=== PATIENT | female | born 1960 | race Caucasian/White ===

== ENCOUNTER → 2017-03-13 | Outpatient (CLI) | payer OTHER ==
--- NOTE | 2017-03-13 14:44 | US ---
EXAMINATION TYPE: US thyroid st tissue head/neck DATE OF EXAM: 03/13/2017 COMPARISON: 06/28/2016 and FNA 08/14/2016 CLINICAL HISTORY: 56-year-old female E04.1 Thyroid nodule. Follow up TECHNIQUE: Multiple sonographic images of the thyroid gland are obtained. FINDINGS: GLAND SIZE: Right Lobe: 4.3 x 1.9 x 2.3 cm Overall Parenchyma: heterogenous Left Lobe: 5.5 x 1.7 x 1.7 cm Overall Parenchyma: heterogeneous Isthmus Thickness: 0.4 cm NODULES RIGHT: # of nodules measured on right: 1 1. 2.2 X 1.2 x 1.6 cm hypoechoic mixed nodule at the mid pole with well-defined margins. This nodu le is wider than tall and shows intranodular vascularity. Prior size: 1.8 x 1.1 x 1.5 cm LEFT: # of nodules measured on left: 0 ISTHMUS: # of nodules measured in the isthmus: 0 Bilateral neck scanned, no evidence of lymphadenopathy. IMPRESSION: The previously sampled nodule within the right lobe has slightly increased in size measuring 2.2 x 1. 6 cm versus 1.8 x 1.5 cm, previously.
== END | disposition home or self-care (01) ==
LOC: RADUSWWP 12:59
PROVIDERS: ATTEND Surgery
DX: E04.1 Nontoxic single thyroid nodule (principal)
CPT/HCPCS: 76536

== ENCOUNTER 2018-10-02 06:56 | Day surgery (SDC) | payer OTHER ==
[2018-09-30 12:25] VITALS: BMI 44.4
--- NOTE | 2018-10-02 06:51 | P.GSHP ---
History of Present Illness H&P Date: 10/02/18 CHIEF COMPLAINT: Colon screen HISTORY OF PRESENT ILLNESS: The patient is a 57-year-old female who presents for colon screen. Lower endoscopy was offered for further evaluation and management. PAST MEDICAL HISTORY: Please see list. PAST SURGICAL HISTORY: Please see list. MEDICATIONS: Please see list. ALLERGIES: Please see list. SOCIAL HISTORY: No illicit drug use FAMILY HISTORY: No reports of Crohn disease or ulcerative colitis. REVIEW OF ORGAN SYSTEMS: CONSTITUTIONAL: No reports of fevers or chills. PHYSICAL EXAM: VITAL SIGNS: Stable GENERAL: Well-developed pleasant in no acute distress. HEENT: No scleral icterus. Extraocular movements grossly intact. Moist buccal mucosa. NECK: Supple without lymphadenopathy. CHEST: Unlabored respirations. Equal bilateral excursions. CARDIOVASCULAR: Regular rate and rhythm. Distal 2+ pulses. ABDOMEN: Soft, nontender, nondistended. MUSCULOSKELETAL: No clubbing, cyanosis, or edema. ASSESSMENT: 1. Colon screen. PLAN: 1. Recommend proceeding with a lower endoscopy Past Medical History Past Medical History: Diabetes Mellitus, GERD/Reflux, Hypertension, Myocardial Infarction ([place]), Sleep Apnea/CPAP/BIPAP, Thyroid Disorder Additional Past Medical History / Comment(s): RECENT BLOOD IN STOOL AND DIFF SWALLOWING.Change in bowel movement,. POSITIVE THYROID BX. KENNY WITH NO CPAP.URINARY INCONTINENCE. POSITIVE HEART MURMUR "stage 3". Peripheral neuropathy, pt states EKG shows previous [place] Last Myocardial Infarction Date:: unknown History of Any Multi-Drug Resistant Organisms: None Reported Past Surgical History: Section, Cholecystectomy Additional Past Surgical History / Comment(s): THYROID BX. X2. Past Anesthesia/Blood Transfusion Reactions: No Reported Reaction Additional Past Anesthesia/Blood Transfusion Reaction / Comment(s): CLAUSTROPHOBIA. Smoking Status: Current every day smoker - Past Family History Mother Family Medical History: Cancer Additional Family Medical History / Comment(s): SKIN CA. Medications and Allergies Home Medications Medication Instructions Recorded Confirmed Type Gabapentin [Neurontin] 300 mg PO DAILY 08/07/16 09/30/18 History amLODIPine [Norvasc] 10 mg PO QAM 08/07/16 09/30/18 History metFORMIN HCL [Glucophage] 1,000 mg PO BID 08/07/16 09/30/18 History Lisinopril 40 mg PO QAM 08/14/16 09/30/18 History Atorvastatin [Lipitor] 80 mg PO DAILY 09/30/18 09/30/18 History Baclofen [Lioresal] 10 mg PO TID 09/30/18 09/30/18 History Cyanocobalamin (Vitamin B-12) 1,000 mcg PO DAILY 09/30/18 09/30/18 History [Vitamin B-12] Exenatide Microspheres [Bydureon] 2 mg SQ SA 09/30/18 09/30/18 History Gabapentin 1,200 mg PO HS 09/30/18 09/30/18 History Glimepiride [Amaryl] 0.5 mg PO DAILY PRN 09/30/18 09/30/18 History Metoprolol Tartrate 50 mg PO DAILY 09/30/18 09/30/18 History Metoprolol Tartrate [Lopressor] 25 mg PO HS 09/30/18 09/30/18 History metFORMIN HCL [Glucophage] 500 mg PO AC-LUNCH 09/30/18 09/30/18 History Allergies Allergy/AdvReac Type Severity Reaction Status Date / Time No Known Allergies Allergy Verified 09/30/18 12:07
[~2018-10-02 06:56] MED LIST: LACTATED RINGERS 1,000 ML IV SCH; LIDOCAINE 1% 20 ML VIAL (10MG/ML) FOR IV START INTRADERMA PRN
[2018-10-02 08:02] VITALS: TEMP 98.3
[2018-10-02 08:03] LABS: Glucose,Whole Blood 131 mg/dL (75-99)
[2018-10-02] MEDS ORDERED: PROPOFOL 10 MG/ML 20 ML VIAL IV ONE (08:04)
[2018-10-02] MEDS ORDERED: LIDOCAINE 1% INJ 10MG/ML (20 ML MDV) ONE (08:04)
--- NOTE | 2018-10-02 08:30 | P.PCN ---
Date of Procedure: 10/02/18 Description of Procedure: PREOPERATIVE DIAGNOSIS: Personal history of colon polyps High risk colon screening Family history colon cancer POSTOPERATIVE DIAGNOSIS: Personal history of colon polyps High risk colon screening Family history colon cancer Multiple tubular adenomas throughout the colon. External hemorrhoids, grade 2. OPERATION: Colonoscopy to the ileocecal valve and appendiceal orifice. Colonoscopy with hot snare polypectomy Colonoscopy with cold forceps biopsy SURGEON: Rowena Reno MD. ANESTHESIA: MAC. INDICATIONS: The patient is a 57-year-old female who presents for colonoscopy screening. last colonoscopy was over 5 years ago. Benefits and risks were described and informed consent was obtained. DESCRIPTION OF PROCEDURE: The patient had undergone Gatorade, MiraLAX and Dulcolax prep. She had been brought into the operating room and laid in the left lateral decubitus position. After adequate intravenous sedation, the rectum was examined with 2% lidocaine jelly. External hemorrhoids were encountered. The rectal tone was within normal limits. No lesions were palpated in the rectal vault. An Olympus colonoscope was advanced until the ileocecal valve and appendiceal orifice were clearly viewed. The prep was fair with visualization of the mucosal folds. The scope was removed with visualization of each mucosal fold. Scattered diverticulosis was encountered. Colonic polyps were found and cold forcep biopsy or snare polypectomy. No evidence of focal colitis was found. Retroflexion of the scope demonstrated grade 1 internal hemorrhoids without active bleeding or inflammation. The colon was desufflated. The patient had tolerated the procedure well. Withdrawal time was over 6 minutes. FINDINGS: Internal hemorrhoids, grade 1 External hemorrhoids, grade 2. No arteriovenous malformations. Sigmoid diverticulosis Removal of 2 polyps: - Snare polypectomy ascending colon, 4 mm tubulovillous adenoma polyp. - Cold forceps biopsy at proximal transverse colon, 3 mm polyp. No focal colitis. RECOMMENDATIONS: Repeat colonoscopy in 3 years, 2021 Plan - Discharge Summary New Discharge Prescriptions: No Action amLODIPine [Norvasc] 10 mg PO QAM metFORMIN HCL [Glucophage] 1,000 mg PO BID Gabapentin [Neurontin] 300 mg PO DAILY Lisinopril 40 mg PO QAM Baclofen [Lioresal] 10 mg PO TID Glimepiride [Amaryl] 0.5 mg PO DAILY PRN PRN Reason: hyperglycemia Exenatide Microspheres [Bydureon] 2 mg SQ SA Gabapentin 1,200 mg PO HS Cyanocobalamin (Vitamin B-12) [Vitamin B-12] 1,000 mcg PO DAILY Metoprolol Tartrate [Lopressor] 25 mg PO HS Metoprolol Tartrate 50 mg PO DAILY metFORMIN HCL [Glucophage] 500 mg PO AC-LUNCH Atorvastatin [Lipitor] 80 mg PO DAILY Discharge Medication List Gabapentin [Neurontin] 300 mg PO DAILY 08/07/16 [History] amLODIPine [Norvasc] 10 mg PO QAM 08/07/16 [History] metFORMIN HCL [Glucophage] 1,000 mg PO BID 08/07/16 [History] Lisinopril 40 mg PO QAM 08/14/16 [History] Atorvastatin [Lipitor] 80 mg PO DAILY 09/30/18 [History] Baclofen [Lioresal] 10 mg PO TID 09/30/18 [History] Cyanocobalamin (Vitamin B-12) [Vitamin B-12] 1,000 mcg PO DAILY 09/30/18 [ History] Exenatide Microspheres [Bydureon] 2 mg SQ SA 09/30/18 [History] Gabapentin 1,200 mg PO HS 09/30/18 [History] Glimepiride [Amaryl] 0.5 mg PO DAILY PRN 09/30/18 [History] Metoprolol Tartrate 50 mg PO DAILY 09/30/18 [History] Metoprolol Tartrate [Lopressor] 25 mg PO HS 09/30/18 [History] metFORMIN HCL [Glucophage] 500 mg PO AC-LUNCH 09/30/18 [History]
[2018-10-02 08:33] VITALS: RESP 16
[2018-10-02 08:51] VITALS: BP 143/75; PULSE 88
== END 2018-10-02 09:07 | disposition home or self-care (01) ==
LOC: ORWHC2ENDO 06:56
PROVIDERS: ATTEND Surgery Plastic and Reconstructive Surgery
DX: Z12.11 Encounter for screening for malignant neoplasm of colon (principal); K63.5 Polyp of colon; K57.30 Diverticulosis of large intestine without perforation or abscess without bleeding; K64.0 First degree hemorrhoids; K64.4 Residual hemorrhoidal skin tags; Z80.0 Family history of malignant neoplasm of digestive organs; Z86.010 Personal history of colon polyps; I25.119 Atherosclerotic heart disease of native coronary artery with unspecified angina pectoris; I10 Essential (primary) hypertension; E11.42 Type 2 diabetes mellitus with diabetic polyneuropathy; G47.33 Obstructive sleep apnea (adult) (pediatric); J44.9 Chronic obstructive pulmonary disease, unspecified; F17.210 Nicotine dependence, cigarettes, uncomplicated; K21.9 Gastro-esophageal reflux disease without esophagitis; I25.2 Old myocardial infarction; R00.2 Palpitations; E07.9 Disorder of thyroid, unspecified; R32 Unspecified urinary incontinence; F40.240 Claustrophobia; Z99.89 Dependence on other enabling machines and devices; Z79.84 Long term (current) use of oral hypoglycemic drugs; Z79.899 Other long term (current) drug therapy
CPT/HCPCS: 88305; 45380; 45385; J2001; J2704

== ENCOUNTER → 2018-12-20 | Day surgery (SDC) | payer OTHER ==
[2018-12-20 12:41] VITALS: BP 158/72; PULSE 73; RESP 20; TEMP 98.5
--- NOTE | 2018-12-20 13:52 | US ---
ULTRASOUND GUIDED FNA THYROID BIOPSY: CLINICAL HISTORY: Right thyroid nodule FINDINGS: The procedure was explained to the patient. The risks, complications, benefits and alternatives were discussed and any questions were answered. Informed consent was obtained. Patient was placed supin e on the ultrasound table and prepped and draped in the usual sterile fashion. Utilizing a 25 gauge needle, five passes were made into the requested right thyroid nodule. Patient was stable throughout the procedure. Pathology is pending. All elements of maximal barrier technique were utilized. IMPRESSION: 1. Successful ultrasound guided FNA thyroid biopsy.
== END ==
LOC: RADPROMAIN 12:01
PROVIDERS: ATTEND Surgery
DX: E04.1 Nontoxic single thyroid nodule (principal)
CPT/HCPCS: 10005; 88173; 88305

== ENCOUNTER → 2019-07-07 | Outpatient (CLI) | payer OTHER ==
--- NOTE | 2019-07-07 13:12 | US ---
EXAMINATION TYPE: US thyroid st tissue head/neck DATE OF EXAM: 07/07/2019 COMPARISON: 03/13/2017 CLINICAL HISTORY: 58-year-old female E04.1 Thyroid Nodule. TECHNIQUE: Multiple sonographic images of the thyroid gland are obtained. FINDINGS: GLAND SIZE: Right Lobe: 4.4 x 1.9 x 1.6 cm Overall Parenchyma: homogenous Left Lobe: 4.1 x 1.5 x 1.8 cm Overall Parenchyma: homogeneous Isthmus Thickness: 0.4 cm NODULES RIGHT: # of nodules measured on right: 1 1. 2.0 X 1.4 x 1.1 cm hypoechoic solid nodule at the mid pole with well-defined margins . This nod ule is wider than tall and shows intranodular vascularity. Prior size: 2.2 x 1.2 x 1.1 cm LEFT: # of nodules measured on left: 1 1. 0.5 X 0.6 x 0.5 cm hypoechoic solid nodule at the lower pole with well-defined margins; . This nodule is taller than wide and shows no intranodular vascularity. Prior size: Not previously seen. ISTHMUS: # of nodules measured in the isthmus: 0 IMPRESSION: 1.The solid 2.0 x 1.4 cm nodule at the right midpole is relatively unchanged (2.2 x 1.2 cm, previousl y). 2. A small signal near solid nodule at the posterior left lower pole may be new. Short interval follo w-up can be considered.
== END | disposition home or self-care (01) ==
LOC: RADUSWWP 09:06
PROVIDERS: ATTEND Surgery
DX: E04.2 Nontoxic multinodular goiter (principal)
CPT/HCPCS: 76536

== ENCOUNTER → 2020-07-07 | Outpatient (CLI) | payer OTHER ==
--- NOTE | 2020-07-07 15:42 | US ---
EXAMINATION TYPE: US thyroid st tissue head/neck DATE OF EXAM: 07/07/2020 COMPARISON: Thyroid ultrasound 07/07/2019, 03/13/2017 CLINICAL HISTORY: E04.1 Thyroid Nodule. GLAND SIZE: Right Lobe: 4.5 x 2.4 x 1.9 cm Overall Parenchyma: homogenous Left Lobe: 4.8 x 1.6 x 1.8 cm Overall Parenchyma: homogeneous Isthmus Thickness: 0.3 cm NODULES RIGHT: # of nodules measured on right: 1 1. 2.0 X 1.1 x 1.4 cm hypoechoic solid nodule at the mid pole with well-defined margins. This nodu le is wider than tall and shows intranodular vascularity. Prior size: 2.0 x 1.4 x 1.1 cm LEFT: # of nodules measured on left: 1. 0.6 X 0.4 x 0.5 cm hypoechoic solid nodule at the lower pole with well-defined margins. This no dule is taller than wide and shows intranodular vascularity. Prior size: 0.5 x 0.6 x 0.5 cm ISTHMUS: # of nodules measured in the isthmus: 0 Bilateral neck scanned, no evidence of lymphadenopathy. IMPRESSION: 1. Right thyroid 2.0 cm nodule unchanged versus 07/07/2019 and 03/13/2017 ultrasound comparisons. 2. Left thyroid 0.6 cm nodule unchanged versus 07/07/2019.
== END | disposition home or self-care (01) ==
LOC: RADUSWWP 10:40
PROVIDERS: ATTEND Surgery
DX: E04.1 Nontoxic single thyroid nodule (principal)
CPT/HCPCS: 76536

== ENCOUNTER → 2021-07-05 | Outpatient (CLI) | payer OTHER ==
--- NOTE | 2021-07-05 15:46 | US ---
EXAMINATION TYPE: US thyroid st tissue head/neck DATE OF EXAM: 07/05/2021 COMPARISON: 07/07/2020 CLINICAL HISTORY: 60-year-old female E04.1 Thyroid nodule. TECHNIQUE: Multiple sonographic images of the thyroid gland are obtained. FINDINGS: GLAND SIZE: Right Lobe: 4.9x2.3x2.5 cm Overall Parenchyma: homogenous Left Lobe: 4.5x2.1x1.6 cm Overall Parenchyma: homogeneous Isthmus Thickness: 0.6 cm NODULES RIGHT: # of nodules measured on right: 1 1. 2.0 X 1.5 x 1.1 cm, mid lateral, primarily solid TR5 hypoechoic nodule, which is wider than tall , with smooth margins, with echogenic foci. Prior size: 2.0 x 1.4 x 1.1 cm LEFT: # of nodules measured on left: 1 1. 0.7 X 0.6 x 0.5 cm, mid mid, solid or almost completely solid, TR 4 hypoechoic nodule, which is wider than tall, with smooth margins, without echogenic foci. Prior size: 0.7 x 0.5 x 0.5 cm ISTHMUS: # of nodules measured in the isthmus: 0 Bilateral neck scanned, no evidence of lymphadenopathy. IMPRESSION: A solid nodule within each lobe. The dominant 2.0 cm nodule on the right is a TR5 nodule but remains stable. The 7 mm TR4 nodule on the left is also stable.
== END | disposition home or self-care (01) ==
LOC: RADUSWWP 12:21
PROVIDERS: ATTEND Surgery
DX: E04.2 Nontoxic multinodular goiter (principal)
CPT/HCPCS: 76536

== ENCOUNTER → 2022-07-06 | Outpatient (CLI) | payer OTHER ==
--- NOTE | 2022-07-06 12:57 | US ---
EXAMINATION TYPE: US thyroid st tissue head/neck DATE OF EXAM: 07/06/2022 COMPARISON: Prior thyroid JULY 05, 2021 CLINICAL HISTORY: E04.1 Thyroid nodule. follow up thyroid nodules GLAND SIZE: Right Lobe: 5.3 x 2.2 x 2.4 cm Overall Parenchyma: homogenous Left Lobe: 4.7 x 1.6 x 1.9 cm Overall Parenchyma: homogeneous Isthmus Thickness: 0.5 cm NODULES RIGHT: # of nodules measured on right: 1 1. 2.2 X 1.4 x 1.6 cm, mid, solid or almost completely solid, hypoechoic nodule, which is wider bev n tall, with smooth margins, with echogenic foci. Prior size: 2.0 x 1.5 x 1.1 cm LEFT: # of nodules measured on left: 1 1. 0.8 X 0.6 x 0.7 cm, mid, solid or almost completely solid, hypoechoic nodule, which is wider bev n tall, with smooth margins, without echogenic foci. Prior size: 0.7 x 0.6 x 0.5 cm ISTHMUS: # of nodules measured in the isthmus: 0 Bilateral neck scanned, lymph nodes left neck with largest = 1.6cm Homogeneous normal-sized thyroid redemonstrated with stable bilateral single nodules marked by techno logist. IMPRESSION: As above. No significant change from most recent ultrasound.
== END | disposition home or self-care (01) ==
LOC: RADUSWWP 11:12
PROVIDERS: ATTEND Surgery
DX: E04.2 Nontoxic multinodular goiter (principal)
CPT/HCPCS: 76536

== ENCOUNTER 2022-07-31 06:06 | Day surgery (SDC) | payer OTHER ==
[2022-07-25 11:36] VITALS: BMI 45.7
[~2022-07-31 06:06] MED LIST changes: +ACETAMINOPHEN TAB 500 MG TAB PO PRN; +HEPARIN SODIUM,PORCINE/PF 5,000 UNIT/0.5 ML SYRINGE SQ PRN; -LACTATED RINGERS 1,000 ML IV SCH; -LIDOCAINE 1% 20 ML VIAL (10MG/ML) FOR IV START INTRADERMA PRN; +Pre Op ABX Message 1 EACH MISC MISCELLANE ONE
[2022-07-31] MEDS ORDERED: DEXAMETHASONE SOD PHOSPHATE 4 MG/ML 1 ML VIAL IV ONE (06:44)
[2022-07-31] MEDS ORDERED: HYDROmorphone 0.5 MG/0.5 ML SYRINGE IVP PRN ×2 (06:44→09:24)
[2022-07-31] MEDS ORDERED: ONDANSETRON 4 MG/2 ML VIAL IVP ONE (06:44)
[2022-07-31 07:07] LABS: Glucose,Whole Blood 273 mg/dL (70-110)
[2022-07-31] MEDS ORDERED: INSULIN ASPART (NovoLOG) 100 UNIT/ML VIAL SQ ONE (07:13)
[2022-07-31] MEDS ORDERED: LACTATED RINGERS 1,000 ML IV ONE ×3 (07:15→09:24)
[2022-07-31] MEDS ORDERED: fentaNYL (PF) 50 MCG/ML 2 ML AMP ONE (07:35)
[2022-07-31] MEDS ORDERED: SUCCINYLCHOLINE CHLORIDE 200 MG/10 ML VIAL IV ONE (07:35)
[2022-07-31] MEDS ORDERED: PHENYLEPHRINE-0.9% NACL SYG 1,000 MCG/10 ML SYRINGE ONE (07:35)
[2022-07-31] MEDS ORDERED: GLYCOPYRROLATE 0.2 MG/ML 2 ML VIAL ONE (07:35)
[2022-07-31] MEDS ORDERED: WATER FOR INJECTION, STERILE 10 ML VIAL IV ONE (07:35)
[2022-07-31] MEDS ORDERED: ePHEDrine 50 MG/ML 1 ML VIAL ONE (07:35)
[2022-07-31] MEDS ORDERED: PROPOFOL 10 MG/ML 20 ML VIAL IV ONE (07:35)
[2022-07-31] MEDS ORDERED: KETAMINE 10 MG/ML 20 ML VIAL ONE (07:35)
[2022-07-31] MEDS ORDERED: MIDAZOLAM 2 MG/2 ML VIAL ONE (07:35)
[2022-07-31] MEDS ORDERED: LIDOCAINE 2% INJ 20 MG/ML (2 ML VIAL) ONE (07:35)
[2022-07-31] MEDS ORDERED: ceFAZolin 3 GM in SODIUM CHLORIDE 0.9% 100 ML IVPB STA (07:38)
[2022-07-31] MEDS ORDERED: SODIUM CHLORIDE 0.9% 100 ML with ceFAZolin 3,000 MG IV ONE ×2 (07:43)
--- NOTE | 2022-07-31 07:50 | P.GSHP ---
History of Present Illness H&P Date: 07/31/22 Chief Complaint: Right thyroid nodule Is a 61-year-old female who has complaints of right neck pain. Patient has a known right thyroid nodule. The nodules increased in size. He currently is 2.2 cm diameter. His resents today for right thyroidectomy Past Medical History Past Medical History: Diabetes Mellitus, GERD/Reflux, Hypertension, Myocardial Infarction ([place]), Osteoarthritis ([place]), Sleep Apnea/CPAP/BIPAP, Thyroid Disorder Additional Past Medical History / Comment(s): diarrhea, hx pre-cancerous colon polyps., hx of difficulty swallowing , sleep apnea with machine., leaky heart valve with heart murmur stage 3., left hip pain & sciatica- states she cannot stand or sit for long.,. Peripheral neuropathy., thyroid nodules. Last Myocardial Infarction Date:: unknown History of Any Multi-Drug Resistant Organisms: None Reported Past Surgical History: Section, Cholecystectomy Additional Past Surgical History / Comment(s): THYROID BX. X2. Past Anesthesia/Blood Transfusion Reactions: No Reported Reaction Additional Past Anesthesia/Blood Transfusion Reaction / Comment(s): CLAUSTROPHOBIA. Past Psychological History: Anxiety, Bipolar, Depression, PTSD Additional Psychological History / Comment(s): . Smoking Status: Current every day smoker Past Alcohol Use History: Rare Additional Past Alcohol Use History / Comment(s): SMOKES 15 CIGARETTES/DAY., STARTED SMOKING AT AGE 10 Past Drug Use History: Marijuana Additional Drug Use History / Comment(s): OCCASIONAL MARIJUANA AND CBD LOTION. - Past Family History Mother Family Medical History: Cancer Additional Family Medical History / Comment(s): SKIN & LUNG CANCER Father Family Medical History: Myocardial Infarction ([place]) Medications and Allergies Home Medications Medication Instructions Recorded Confirmed Type metFORMIN HCL [Glucophage] 500 mg PO BID 08/07/16 07/25/22 History lisinopriL 40 mg PO QAM 08/14/16 07/25/22 History Atorvastatin [Lipitor] 80 mg PO DAILY 09/30/18 07/25/22 History Baclofen [Lioresal] 10 mg PO TID 09/30/18 07/25/22 History Gabapentin [Neurontin] 800 mg PO TID 12/11/18 07/25/22 History Acetaminophen Tab [Tylenol] 325 mg PO DIRECTED PRN 07/25/22 07/25/22 History Escitalopram [Lexapro] 10 mg PO DAILY 07/25/22 07/25/22 History Glimepiride [Amaryl] 2 mg PO AC-BRKFST 07/25/22 07/25/22 History Liraglutide [Victoza 2-Frandy] 0.6 mg SQ DAILY 07/25/22 07/25/22 History Metoprolol Tartrate [Lopressor] 50 mg PO BID 07/25/22 07/25/22 History Pantoprazole [Protonix] 40 mg PO DAILY 07/25/22 07/25/22 History Allergies Allergy/AdvReac Type Severity Reaction Status Date / Time No Known Allergies Allergy Verified 07/25/22 11:18 Surgical - Exam Vital Signs Temp Pulse Resp BP Pulse Ox 97.6 F 61 20 169/79 94 L 07/31/22 06:57 07/31/22 06:57 07/31/22 06:57 07/31/22 06:57 07/31/22 06:57 - General Patient is obese. BMI is 45 well developed, well nourished, no distress - Eyes PERRL - ENT normal pinna - Neck no masses - Respiratory normal expansion - Cardiovascular Rhythm: regular - Abdomen Abdomen: soft, non tender Results - Labs Abnormal Lab Results - Last 24 Hours (Table) 07/31/22 Range/Units 07:05 POC Glucose (mg/dL) 273 H (70-110) mg/dL Diabetes panel 07/31/22 Range/Units 07:05 Calcium 9.0 (8.4-10.2) mg/dL Calcium panel 07/31/22 Range/Units 07:05 Calcium 9.0 (8.4-10.2) mg/dL Pituitary panel 07/31/22 Range/Units 07:05 Calcium 9.0 (8.4-10.2) mg/dL Adrenal panel 07/31/22 Range/Units 07:05 Calcium 9.0 (8.4-10.2) mg/dL Assessment and Plan Assessment: Right thyroid nodule. She'll undergo right thyroidectomy.
[2022-07-31] MEDS ORDERED: ONDANSETRON 4 MG/2 ML VIAL IVP PRN (09:24)
[2022-07-31] MEDS ORDERED: HYDROcodone/APAP 5-325MG 1 EACH TAB PO PRN (09:24)
[2022-07-31] MEDS ORDERED: NALOXONE 0.4 MG/ML 1 ML VIAL IV PRN (09:24)
[2022-07-31] MEDS ORDERED: ACETAMINOPHEN TAB 325 MG TAB PO PRN (09:24)
--- NOTE | 2022-07-31 09:24 | P.OP ---
Date of Procedure: 07/31/22 Preoperative Diagnosis: Right thyroid nodule Postoperative Diagnosis: Right thyroid nodule Procedure(s) Performed: Right thyroidectomy Anesthesia: BOB Surgeon: Ruben Vidal Estimated Blood Loss (ml): 5 Pathology: other (Right thyroid) Condition: stable Disposition: PACU Description of Procedure: The patient's placed on the operative table in the supine position. She received general endotracheal tube anesthesia. Her neck was prepped and draped usual sterile fashion. A standard Jasper incision was made approximately 2 cm above the sternal notch. Some taste issue divided with cautery. The platysma divided with cautery. The strap muscles were then divided midline. Gelpi retractors placed a wound. The right thyroid gland was then brought up into the wound. The inferior thyroid vessels were dissected and then ligated with 3-0 silk sutures. The superior thyroid vessels were then dissected. And then these were ligated with 2-0 silk ties. The gland was then rotated medially. Using meticulous dissection the middle thyroid vessels were ligated with 3-0 silk t ies. Care was taken to identify and preserve the recurrent laryngeal nerve. The thyroid was then rotated further medially. And then using meticulous dissection the thyroid gland was dissected off the trachea. The isthmus was then divided with the Harmonic scissors. The specimens of pathology. The was retrieved cyst. There is no bleeding seen. The strap muscles then reapproximated using 3-0 Vicryl suture. The platysma was an approximate using 3-0 Vicryl suture. Skin was closed interrupted 3-0 Monocryl suture. Dermabond was applied. Patient top she will was sent to recovery room in stable condition.
[2022-07-31 10:13] LABS: Glucose,Whole Blood 219 mg/dL (70-110)
[2022-07-31] MEDS: LACTATED RINGERS 1,000 ML IV SCH ×2 (11:58→15:53)
[2022-07-31 12:35] LABS: Glucose,Whole Blood 236 mg/dL (70-110)
[2022-07-31] MEDS ORDERED: BENZOCAINE/MENTHOL LOZENG 1 EACH LOZENGE MUCOUS MEM PRN (17:26)
[2022-07-31 17:41] LABS: Glucose,Whole Blood 310 mg/dL (70-110)
[2022-07-31] MEDS: INSULIN ASPART (NovoLOG) 100 UNIT/ML VIAL SQ SCH ×2 (19:04→21:59)
[2022-07-31] MEDS ORDERED: INSULIN ASPART (NovoLOG) 100 UNIT/ML VIAL SQ SCH (21:00)
[2022-07-31 21:47] LABS: Glucose,Whole Blood 288 mg/dL (70-110)
[2022-07-31] MEDS: METOPROLOL TARTRATE 50 MG TAB PO SCH (21:52)
[2022-07-31] MEDS: BACLOFEN 10 MG TAB PO SCH (21:53)
[2022-07-31] MEDS: GABAPENTIN 400 MG CAP PO SCH (21:59)
[2022-08-01 06:13] LABS: Glucose,Whole Blood 190 mg/dL (70-110)
[2022-08-01] MEDS: INSULIN ASPART (NovoLOG) 100 UNIT/ML VIAL SQ SCH ×2 (06:38→12:59)
[2022-08-01] MEDS ORDERED: GLIMEPIRIDE 2 MG TAB PO SCH (07:30)
[2022-08-01] MEDS ORDERED: PANTOPRAZOLE 40 MG TABLET PO SCH (07:30)
[2022-08-01 07:35] VITALS: BP 133/71; PULSE 59; RESP 18; TEMP 97.9
[2022-08-01] MEDS: BACLOFEN 10 MG TAB PO SCH (08:27)
[2022-08-01] MEDS: GABAPENTIN 400 MG CAP PO SCH (08:27)
[2022-08-01] MEDS: METOPROLOL TARTRATE 50 MG TAB PO SCH (08:28)
[2022-08-01] MEDS ORDERED: ESCITALOPRAM 10 MG TAB PO SCH (09:00)
[2022-08-01] MEDS ORDERED: ENOXAPARIN 40 MG/0.4 ML SYRINGE SQ SCH (09:00)
[2022-08-01] MEDS ORDERED: lisinopriL 20 MG TAB PO SCH (09:00)
[2022-08-01] MEDS ORDERED: ATORVASTATIN 80 MG TAB PO SCH (09:00)
--- NOTE | 2022-08-01 12:03 | P.CONS ---
History of Present Illness - Reason for Consult Consult date: 08/01/22 - History of Present Illness This is a 61 year old female with history of diabetes mellitus, GERD, hypertension, sleep apnea with cpap use, heart murmur, peripheral neuropathy, thyroid disorder. History of VT with cardiac cath patient states was clear. Patient is a daily smoker smokes 1/2 pack per day and also occasional marijuana use. Patient presents to the hospital for planned right thyroidectomy secondary to thyroid nodule. States she has had 2 biopsies previously. Unsure if this is cancer or not, pathology is pending. She is postoperative day #1. She has been resumed on home medications and also sliding scale insulin blood sugar is elevated in the 200s. She is maintained on oral diabetic agents. She is afebrile, heart rate 59, blood pressure 133/71, 93% on room air. Reports having some mild discomfort when swallowing but managable and using lozenges. Pain to the neck incision rated 3 out of 10. Controlled with oral medication. Anticipating discharge home today and medically she is cleared for this. REVIEW OF SYSTEMS: CONSTITUTIONAL: No fever, no malaise, no fatigue. HEENT: No recent visual problems or hearing problems. Has some mild sore throat. CARDIOVASCULAR: No chest pain, orthopnea, PND, no palpitations, no syncope. PULMONARY: No shortness of breath, no cough, no hemoptysis. GASTROINTESTINAL: No diarrhea, no nausea, no vomiting, no abdominal pain. NEUROLOGICAL: No headaches, no weakness, no numbness. HEMATOLOGICAL: Denies any bleeding or petechiae. GENITOURINARY: Denies any burning micturition, frequency, or urgency. MUSCULOSKELETAL/RHEUMATOLOGICAL: Denies any joint pain, swelling, or any muscle pain. ENDOCRINE: Denies any polyuria or polydipsia. The rest of the 14-point review of systems is negative. PHYSICAL EXAMINATION: GENERAL: The patient is alert and oriented x3, not in any acute distress. Well developed, well nourished. Obese HEENT: Pupils are round and equally reacting to light. EOMI. No scleral icterus. No conjunctival pallor. Normocephalic, atraumatic. No pharyngeal erythema. No thyromegaly. CARDIOVASCULAR: S1 and S2 present. No murmurs, rubs, or gallops. PULMONARY: Chest is clear to auscultation, no wheezing or crackles. ABDOMEN: Soft, nontender, nondistended, normoactive bowel sounds. No palpable organomegaly. MUSCULOSKELETAL: No joint swelling or deformity. EXTREMITIES: No cyanosis, clubbing, or pedal edema. NEUROLOGICAL: Gross neurological examination did not reveal any focal deficits. SKIN: No rashes. anterior neck transverse incision well approximated no drainage minimal erythema. Assessment and Plan Assessment History of right thyroid nodule postoperative day 1 right thyroidectomy History of heart murmur Sleep apnea with CPAP use Diabetes Mellitus type 2 with peripheral neuropathy Hypertension Gastroesophageal reflux disease History of coronary artery disease managed medically. Chronic daily nicotine use patient was counseled extensively states she will cut back stop while healing from surgery. Obesity Gi prophylaxis DVT prophylaxis Full Code Plan Continue home medications Continue oral amaryl consider additional management of blood sugar on discharge patient is hyperglycemic with blood glucose in the 200s Continue cepacol lozenge and supportive care Pain management Incentive spirometry Medically patient can be discharged if cleared by primary The impression and plan of care has been dictated by Manda Gomes Nurse Practitioner as directed. Dr. Cathy MD I have performed a history and physical examination and medical decision making of this patient, discussed the same with the dictator, and agree with the dictators assessment and plan as written, documented as a scribe. Based on total visit time, I have performed more than 50% of this visit. Past Medical History Past Medical History: Diabetes Mellitus, GERD/Reflux, Hypertension, Myocardial Infarction (VT), Osteoarthritis (OA), Sleep Apnea/CPAP/BIPAP, Thyroid Disorder Additional Past Medical History / Comment(s): diarrhea, hx pre-cancerous colon polyps., hx of difficulty swallowing , sleep apnea with machine., leaky heart valve with heart murmur stage 3., left hip pain & sciatica- states she cannot stand or sit for long.,. Peripheral neuropathy., thyroid nodules. Last Myocardial Infarction Date:: unknown History of Any Multi-Drug Resistant Organisms: None Reported Past Surgical History: Section, Cholecystectomy Additional Past Surgical History / Comment(s): THYROID BX. X2. Past Anesthesia/Blood Transfusion Reactions: No Reported Reaction Additional Past Anesthesia/Blood Transfusion Reaction / Comm: CLAUSTROPHOBIA. Past Psychological History: Anxiety, Bipolar, Depression, PTSD Additional Psychological History / Comment(s): . Smoking Status: Current every day smoker Past Alcohol Use History: Rare Additional Past Alcohol Use History / Comment(s): SMOKES 15 CIGARETTES/DAY., STARTED SMOKING AT AGE 10 Past Drug Use History: Marijuana Additional Drug Use History / Comment(s): OCCASIONAL MARIJUANA AND CBD LOTION. - Past Family History Mother Family Medical History: Cancer Additional Family Medical History / Comment(s): SKIN & LUNG CANCER Father Family Medical History: Myocardial Infarction (VT) Medications and Allergies Home Medications Medication Instructions Recorded Confirmed Type metFORMIN HCL [Glucophage] 500 mg PO BID 08/07/16 07/25/22 History lisinopriL 40 mg PO QAM 08/14/16 07/25/22 History Atorvastatin [Lipitor] 80 mg PO DAILY 09/30/18 07/25/22 History Baclofen [Lioresal] 10 mg PO TID 09/30/18 07/25/22 History Gabapentin [Neurontin] 800 mg PO TID 12/11/18 07/25/22 History Acetaminophen Tab [Tylenol] 325 mg PO DIRECTED PRN 07/25/22 07/25/22 History Escitalopram [Lexapro] 10 mg PO DAILY 07/25/22 07/25/22 History Glimepiride [Amaryl] 2 mg PO AC-BRKFST 07/25/22 07/25/22 History Liraglutide [Victoza 2-Frandy] 0.6 mg SQ DAILY 07/25/22 07/25/22 History Metoprolol Tartrate [Lopressor] 50 mg PO BID 07/25/22 07/25/22 History Pantoprazole [Protonix] 40 mg PO DAILY 07/25/22 07/25/22 History Allergies Allergy/AdvReac Type Severity Reaction Status Date / Time No Known Allergies Allergy Verified 07/25/22 11:18 Physical Exam Vitals: Vital Signs Temp Pulse Pulse Resp BP BP Pulse Ox 08/01/22 07:00 97.9 F 59 L 18 133/71 93 L 08/01/22 02:00 97.3 F L 66 17 135/62 94 L 07/31/22 21:47 98.0 F 67 19 134/63 91 L 07/31/22 15:00 98.1 F 71 17 149/73 89 L 07/31/22 13:12 87 17 157/78 92 L 07/31/22 12:57 87 17 153/78 92 L 07/31/22 12:42 97 18 135/73 97 07/31/22 12:27 88 17 154/80 95 07/31/22 12:12 97.4 F L 92 17 143/78 93 L 07/31/22 10:48 95 18 142/78 96 07/31/22 10:31 96 18 138/67 96 07/31/22 10:22 171/87 07/31/22 10:15 95 18 197/90 96 07/31/22 10:00 98 18 194/86 96 07/31/22 09:46 93 18 191/79 96 Intake and Output 07/31/22 08/01/22 08/01/22 22:59 06:59 14:59 Intake Total 300 Balance 300 Intake: Oral 300 Other: # Voids 2 1 Results Labs: Abnormal Lab Results - Last 24 Hours (Table) 07/31/22 07/31/22 07/31/22 Range/Units 10:11 12:32 17:39 POC Glucose (mg/dL) 219 H 236 H 310 H (70-110) mg/dL 07/31/22 08/01/22 Range/Units 21:45 06:12 POC Glucose (mg/dL) 288 H 190 H (70-110) mg/dL Assessment and Plan Time with Patient: Less than 30
[2022-08-01 12:20] LABS: Glucose,Whole Blood 157 mg/dL (70-110)
--- NOTE | 2022-08-01 13:55 | P.DS ---
Providers Expected date of discharge: 08/01/22 Attending physician: Ruben Vidal Consults: 07/31/22 09:24 Consult Physician Routine Consulting Provider: Sd Morgan Consult Reason/Comments: Medical management Do you want consulting provider notified?: Yes Primary care physician: Stated None Hospital Course: Discharge diagnosis 1. Right thyroid nodule status post right thyroidectomy Hospital course This is a 61-year-old female with right sided neck pain. She has a known right thyroid nodule that has increased in size. She is status post right thyroidectomy. She's tolerated surgery well. Her pain is controlled. She denies any hoarseness. She denies any difficulty with swallowing. She's tolerating diet. She's afebrile. Incision site is clean dry and intact. She is stable for discharge. Please refer to chart for any further details. Physician Desktop Support Consultant note has been reviewed by physician. Signing provider agrees with the documented findings, assessment, and plan of care. Patient Condition at Discharge: Stable Plan - Discharge Summary Discharge Rx Participant: No New Discharge Prescriptions: New Benzocaine/Menthol Lozeng [Cepacol lozenge] 1 each MUCOUS MEM Q2HR PRN #20 lozenge PRN Reason: Sore Throat HYDROcodone/APAP 5-325MG [[place] 5-325] 1 tab PO Q6HR PRN 3 Days #12 tab PRN Reason: Pain Continue metFORMIN HCL [Glucophage] 500 mg PO BID lisinopriL 40 mg PO QAM Baclofen [Lioresal] 10 mg PO TID Atorvastatin [Lipitor] 80 mg PO DAILY Gabapentin [Neurontin] 800 mg PO TID Glimepiride [Amaryl] 2 mg PO AC-BRKFST Liraglutide [Victoza 2-Frandy] 0.6 mg SQ DAILY Pantoprazole [Protonix] 40 mg PO DAILY Metoprolol Tartrate [Lopressor] 50 mg PO BID Escitalopram [Lexapro] 10 mg PO DAILY Acetaminophen Tab [Tylenol] 325 mg PO DIRECTED PRN PRN Reason: Pain Discharge Medication List metFORMIN HCL [Glucophage] 500 mg PO BID 08/07/16 [History] lisinopriL 40 mg PO QAM 08/14/16 [History] Atorvastatin [Lipitor] 80 mg PO DAILY 09/30/18 [History] Baclofen [Lioresal] 10 mg PO TID 09/30/18 [History] Gabapentin [Neurontin] 800 mg PO TID 12/11/18 [History] Acetaminophen Tab [Tylenol] 325 mg PO DIRECTED PRN 07/25/22 [History] Escitalopram [Lexapro] 10 mg PO DAILY 07/25/22 [History] Glimepiride [Amaryl] 2 mg PO AC-BRKFST 07/25/22 [History] Liraglutide [Victoza 2-Frandy] 0.6 mg SQ DAILY 07/25/22 [History] Metoprolol Tartrate [Lopressor] 50 mg PO BID 07/25/22 [History] Pantoprazole [Protonix] 40 mg PO DAILY 07/25/22 [History] Benzocaine/Menthol Lozeng [Cepacol lozenge] 1 each MUCOUS MEM Q2HR PRN #20 lozenge 08/01/22 [Rx] HYDROcodone/APAP 5-325MG [Enterprise 5-325] 1 tab PO Q6HR PRN 3 Days #12 tab 08/01/22 [Rx] Follow up Appointment(s)/Referral(s): JOSEY GARNICA DO [REFERRING] - 1-2 Days Ruben Vidal MD [STAFF PHYSICIAN] - 1 Week Activity/Diet/Wound Care/Special Instructions: Recommend total smoking cessation Follow up with your primary care provider in 1 to [address] while taking Enterprise No lifting over 10 pounds Shower daily. No soaking or tub baths for 2 weeks Very light activity until you are reevaluated at your follow up appointment with your surgeon Discharge Disposition: HOME SELF-CARE
== END 2022-08-01 14:25 | disposition home or self-care (01) ==
LOC: OR 06:06 → 6NMEDSUR 09:41 → OR 08-01 14:25
PROVIDERS: ATTEND Surgery
DX: E04.1 Nontoxic single thyroid nodule (principal); E11.42 Type 2 diabetes mellitus with diabetic polyneuropathy; F17.210 Nicotine dependence, cigarettes, uncomplicated; I10 Essential (primary) hypertension
CPT/HCPCS: 82310; 88307; 60220; J2250; J0330; J1100; J2405; J0690; J1650; J3010; J2370; J2704; J1644; J2001